=== PATIENT | female | born 1995 | race Caucasian/White ===

== ENCOUNTER → 2017-09-15 | Outpatient (CLI) | payer OTHER ==
[~2017-09-15] MED LIST: GADAVIST IV PRN; NORE1TAB3 PO
--- NOTE | 2017-09-15 21:32 | DIAGNOSTIC IMAGING REPORT ---
BRAIN COMBO CLINICAL HISTORY: 22 years-old Female presenting with ABNORMAL BRAIN MRI, follow-up, status post fall one month ago, injured the right side of the head, increasing memory loss and migraines. TECHNIQUE: Multisequence, multiplanar MR imaging of the brain was performed before and after the administration of intravenous contrast. IV contrast: 6 mL of Gadavist. COMPARISON: No priors available for comparison despite the history of MRI. FINDINGS: Ventricles and sulci normal in size. Few nonspecific small foci of white matter T2/FLAIR hyperintensity in the frontal lobes (series 7 images 9 and 10). These do not demonstrate enhancement or restricted diffusion. No mass effect or midline shift. No restricted diffusion to suggest acute ischemia. No hemorrhage. No extra-axial fluid collection. T2 skull base flow voids preserved. Developmental venous anomaly evident in the right frontal lobe. No abnormal parenchymal enhancement. Bone marrow signal intensity within the calvarium within normal limits. Polypoid mucosal thickening in the left maxillary sinus. IMPRESSION: 1. No acute intracranial pathology. No abnormal enhancement. 2. Few nonspecific small foci of white matter signal abnormality in the frontal lobes could relate to chronic migraines among other etiologies. No evidence of hemorrhage, abnormal enhancement, restricted diffusion of these foci. These are not specific for trauma. Electronically signed by: Dat Chand M.D. 09/15/2017 9:31 PM Dictated Date/Time: 09/15/2017 9:26 PM
== END | disposition home or self-care (01) ==
LOC: C.MRI 20:19
PROVIDERS: ATTEND Psychiatry & Neurology Neurology
DX: R90.89 Other abnormal findings on diagnostic imaging of central nervous system (principal)

== ENCOUNTER 2018-02-14 16:36 | Emergency (ER) | payer OTHER ==
[~2018-02-14] VITALS: Ht 165.1 cm; Wt 55.8 kg
[~2018-02-14 16:36] MED LIST changes: -GADAVIST IV PRN
[2018-02-14 16:39] VITALS: TEMP 37.2; Ht 165.1 cm; Wt 55.8 kg
[2018-02-14] MEDS ORDERED: PANTOprazole INJ 40 MG in SYRINGE 0 ML IV ONE (17:00)
[2018-02-14] MEDS ORDERED: GI COCKTAIL PO ONE (17:00)
[2018-02-14] MEDS ORDERED: SODIUM CHLORIDE 0.9% 1000ML 1,000 ML IV ONE (17:00)
[2018-02-14] MEDS ORDERED: LIDOCAINE HCL 2% VISC SOLN 20 ML UDC ONE (17:02)
[2018-02-14] MEDS ORDERED: ALUMINUM/MAGNESIUM SUSP 30 ML UDC ONE (17:02)
[2018-02-14 17:20] LABS: BASO % 0.5 %; BASO ABS # 0.03 K/uL (0-0.2); EOS ABS # 0.12 K/uL (0-0.5); HEMATOCRIT 42.7 % (37-47); HEMOGLOBIN 14.6 g/dL (12.0-16.0); IG# 0.01 K/uL (0.00-0.02); LYMPH % 25.7 %; LYMPH ABS # 1.55 K/uL (1.2-3.4); MEAN CELL VOLUME 87.5 fL (80-100); MEAN CORPUSCULAR HEMOGLOBIN 29.9 pg (25-34); MEAN CORPUSCULAR HGB CONC 34.2 g/dl (32-36); MEAN PLATELET VOLUME 9.5 fL (7.4-10.4); MONO % 9.8 %; MONO ABS # 0.59 K/uL (0.11-0.59); NEUT % 61.8 %; NEUT ABS # 3.72 K/uL (1.4-6.5); PLATELET COUNT 272 K/uL (130-400); RED CELL DISTRIBUTION WIDTH CV 12.9 % (11.5-14.5); RED CELL DISTRIBUTION WIDTH SD 41.4 fL (36.4-46.3); WHITE BLOOD COUNT 6.02 K/uL (4.8-10.8)
[2018-02-14 17:43] LABS: ALBUMIN 4.6 gm/dl (3.4-5.0); CALCIUM 9.1 mg/dl (8.5-10.1); CREATININE 1.06 mg/dl (0.60-1.20); POTASSIUM 3.6 mmol/L (3.5-5.1); TOTAL PROTEIN 8.8 gm/dl (6.4-8.2)
--- NOTE | 2018-02-14 18:14 | DIAGNOSTIC IMAGING REPORT ---
ABDOMEN 2VIEW W/PA CHEST RTN HISTORY: 22 years-old Female Upper abd pain acute upper abdominal pain COMPARISON: None available TECHNIQUE: PA view of the chest with erect and supine views of the abdomen FINDINGS: Cardiomediastinal and hilar silhouettes are within normal limits. No pneumothorax, pleural effusion, focal airspace consolidation or overt pulmonary edema. The bones of the chest appear grossly intact. There is no pneumatosis or pneumoperitoneum. The bowel gas pattern is nonobstructive. No urolith or organomegaly. No fracture. IMPRESSION: Unremarkable acute abdominal series radiographs. The above report was generated using voice recognition software. It may contain grammatical, syntax or spelling errors. Electronically signed by: Edwin Orta M.D. 02/14/2018 6:13 PM Dictated Date/Time: 02/14/2018 6:11 PM
--- NOTE | 2018-02-14 19:14 | DIAGNOSTIC IMAGING REPORT ---
ABDOMINAL ULTRASOUND, RIGHT UPPER QUADRANT HISTORY: Upper and RUQ abd pain. Worse after eating. COMPARISON: None. FINDINGS: Pancreas: The pancreas demonstrates a normal echotexture. Liver: Unremarkable. Gallbladder: No gallbladder wall thickening. No gallstones. There is a 2 mm gallbladder polyp. Negative sonographic Arriaga's sign. CBD: 2 mm. Right kidney: No hydronephrosis. IMPRESSION: 1. No gallstones. No gallbladder wall thickening. 2. A 2 mm gallbladder polyp. Electronically signed by: Lucio Marquez M.D. 02/14/2018 7:13 PM Dictated Date/Time: 02/14/2018 7:12 PM
[2018-02-14 19:18] VITALS: BP 122/92; PULSE 80; O2SAT 97
[2018-02-14] MEDS ORDERED: PANT40TA PO (19:50)
--- NOTE | 2018-02-14 20:17 | EMERGENCY ROOM VISIT NOTE ---
History First contact with patient: 16:43 Chief Complaint: ABDOMINAL PAIN Stated Complaint: STOMACH PAINS AND NAUSEA Nursing Triage Summary: Starting started getting bad stomach pains, especially when she eats. Including nasuea and bloating. once the food goes through the symptoms resolve, some lower right pain afterwards. Denies blood in stool/urine. If pt eats a lot, pain is 6/10; eating bland foods pain is 5/10. Pain starts 5-10 minutes after pt starts eating. No vomiting. Denies trauma History of Present Illness The patient is a 22 year old female who presents to the Emergency Room with complaints of epigastric abdominal pain for the past 6 days. Her symptoms appear to be distinctly related to eating. She states that after she eats she has nausea and bloating. After a few hours the pain resolves. She does not have pain unless she eats. She has not had vomiting or lower abdominal/pelvic pain. She is using the bathroom as normal. Patient does not have injury or trauma. No fevers or chills. She is on control and denies chance of . No atypical vaginal drainage or discharge. No previous abdominal surgeries. She rates her discomfort after eating a 6/10. She evidently went to an urgent care clinic today, and was tender in the right upper quadrant, and thus was referred to the ER for further evaluation. Review of Systems More than 10 systems were reviewed and otherwise negative with the exception of history of present illness. Past Medical/Surgical History No chronic medical disease Family History Patient reports no known family medical history. Social History Smoking Status: Never Smoker Alcohol Use: none Drug Use: none Marital Status: single Housing Status: lives with roommate Occupation Status: student Current/Historical Medications Scheduled Norethin Acet & Estrad-Fe (08/06), 1 TAB PO HS Pantoprazole (Protonix), 40 MG PO DAILY Physical Exam Vital Signs Date Time Temp Pulse Resp B/P (MAP) Pulse Ox O2 Delivery O2 Flow Rate FiO2 02/14/18 19:18 80 16 122/92 97 Room Air 02/14/18 18:30 66 14 120/79 97 Room Air 02/14/18 17:21 66 14 125/82 100 Room Air 02/14/18 16:39 37.2 85 18 124/94 100 Room Air Physical Exam VITALS: Vitals are noted on the nurse's note and reviewed by myself. Vital signs stable. GENERAL: Well-developed, well-nourished, white female, who is in no acute distress and resting comfortably. Patient is cooperative with the examination. HEAD: Normocephalic atraumatic. HEART: Regular rate and rhythm without murmurs gallops or rubs. LUNGS: Clear to auscultation bilaterally without wheezes, rales or rhonchi. No retractions or accessory muscle use. ABDOMEN: Positive normal bowel sounds x 4. Soft with positive epigastric and right upper quadrant tenderness on palpation. No rebound or guarding. No lower abdominal tenderness. No CVA tenderness. MUSCULOSKELETAL: No muscle atrophy, erythema, or edema noted. Full range of motion in all extremities. Medical Decision & Procedures ER Provider Diagnostic Interpretation: ABDOMEN 2VIEW W/PA CHEST RTN HISTORY: 22 years-old Female Upper abd pain acute upper abdominal pain COMPARISON: None available TECHNIQUE: PA view of the chest with erect and supine views of the abdomen FINDINGS: Cardiomediastinal and hilar silhouettes are within normal limits. No pneumothorax, pleural effusion, focal airspace consolidation or overt pulmonary edema. The bones of the chest appear grossly intact. There is no pneumatosis or pneumoperitoneum. The bowel gas pattern is nonobstructive. No urolith or organomegaly. No fracture. IMPRESSION: Unremarkable acute abdominal series radiographs. ABDOMINAL ULTRASOUND, RIGHT UPPER QUADRANT HISTORY: Upper and RUQ abd pain. Worse after eating. COMPARISON: None. FINDINGS: Pancreas: The pancreas demonstrates a normal echotexture. Liver: Unremarkable. Gallbladder: No gallbladder wall thickening. No gallstones. There is a 2 mm gallbladder polyp. Negative sonographic Arriaga's sign. CBD: 2 mm. Right kidney: No hydronephrosis. IMPRESSION: 1. No gallstones. No gallbladder wall thickening. 2. A 2 mm gallbladder polyp. Laboratory Results 02/14/18 17:00 Red Blood Count 4.88, Mean Corpuscular Volume 87.5, Mean Corpuscular Hemoglobin 29.9, Mean Corpuscular Hemoglobin Concent 34.2, Mean Platelet Volume 9.5, Neutrophils (%) (Auto) 61.8, Lymphocytes (%) (Auto) 25.7, Monocytes (%) (Auto) 9.8, Eosinophils (%) (Auto) 2.0, Basophils (%) (Auto) 0.5, Neutrophils # (Auto) 3.72, Lymphocytes # (Auto) 1.55, Monocytes # (Auto) 0.59, Eosinophils # (Auto) 0.12, Basophils # (Auto) 0.03 02/14/18 17:00 Test 02/14/18 17:00 White Blood Count 6.02 K/uL (4.8-10.8) Red Blood Count 4.88 M/uL (4.2-5.4) Hemoglobin 14.6 g/dL (12.0-16.0) Hematocrit 42.7 % (37-47) Mean Corpuscular Volume 87.5 fL (80-100) Mean Corpuscular Hemoglobin 29.9 pg (25-34) Mean Corpuscular Hemoglobin Concent 34.2 g/dl (32-36) Platelet Count 272 K/uL (130-400) Mean Platelet Volume 9.5 fL (7.4-10.4) Neutrophils (%) (Auto) 61.8 % Lymphocytes (%) (Auto) 25.7 % Monocytes (%) (Auto) 9.8 % Eosinophils (%) (Auto) 2.0 % Basophils (%) (Auto) 0.5 % Neutrophils # (Auto) 3.72 K/uL (1.4-6.5) Lymphocytes # (Auto) 1.55 K/uL (1.2-3.4) Monocytes # (Auto) 0.59 K/uL (0.11-0.59) Eosinophils # (Auto) 0.12 K/uL (0-0.5) Basophils # (Auto) 0.03 K/uL (0-0.2) RDW Standard Deviation 41.4 fL (36.4-46.3) RDW Coefficient of Variation 12.9 % (11.5-14.5) Immature Granulocyte % (Auto) 0.2 % Immature Granulocyte # (Auto) 0.01 K/uL (0.00-0.02) Urine Color YELLOW Urine Appearance CLEAR (CLEAR) Urine pH 6.5 (4.5-7.5) Urine Specific [place] 1.011 (1.000-1.030) Urine Protein NEG (NEG) Urine Glucose (UA) NEG (NEG) Urine Ketones NEG (NEG) Urine Occult Blood NEG (NEG) Urine Nitrite NEG (NEG) Urine Bilirubin NEG (NEG) Urine Urobilinogen NEG (NEG) Urine Leukocyte Esterase NEG (NEG) Urine Test NEG (NEG) Anion Gap 7.0 mmol/L (3-11) Est Creatinine Clear Calc Drug Dose 72.7 ml/min Estimated GFR () 85.7 Estimated GFR (Non- 74.0 BUN/Creatinine Ratio 11.9 (10-20) Calcium Level 9.1 mg/dl (8.5-10.1) Total Bilirubin 0.4 mg/dl (0.2-1) Aspartate Amino Transf (AST/SGOT) 15 U/L (15-37) Alanine Aminotransferase (ALT/SGPT) 19 U/L (12-78) Alkaline Phosphatase 65 U/L (45-117) Total Protein 8.8 gm/dl (6.4-8.2) Albumin 4.6 gm/dl (3.4-5.0) Globulin 4.2 gm/dl (2.5-4.0) Albumin/Globulin Ratio 1.1 (0.9-2) Lipase 142 U/L (73-393) Medications Administered Medications (Trade) Dose Ordered Sig/Macario Route Start Time Stop Time Status Last Admin Dose Admin Sodium Chloride 1,000 ml @ 999 mls/hr Q1H1M ONCE IV 02/14/18 17:00 02/14/18 18:00 DC 02/14/18 17:12 999 MLS/HR Pantoprazole Sodium 40 mg/ Syringe 10 ml @ 5 mls/min NOW ONCE IV 02/14/18 17:00 02/14/18 17:01 DC 02/14/18 17:13 5 MLS/MIN Lidocaine HCl (Viscous Lidocaine 2% Soln) 20 ml STK-MED ONCE .ROUTE 02/14/18 17:02 02/14/18 17:03 DC 02/14/18 17:12 10 ML Al Hydroxide/Mg Hydroxide (Maalox Susp) 30 ml STK-MED ONCE .ROUTE 02/14/18 17:02 02/14/18 17:03 DC 02/14/18 17:12 30 ML ED Course Physical exam and history were performed. Nursing notes, EMR, and Medication List were personally reviewed. Patient appears to have postprandial abdominal pain. She does have some reproducible tenderness in the epigastric and right upper quadrant areas. IV access was established and labs are obtained. The patient was hydrated and medicated as above. Plain films and ultrasound were ordered. The patient's blood work is as above and was reviewed. She does not have a significantly elevated white blood cell count, gross anemia, bandemia, or significant electrolyte imbalance. Lipase and transaminases are not diagnostic. Urine is without evidence of infection. She is not . X- ray was reviewed by myself and radiology as showing no acute process. Ultrasound shows a small 2 mm gallbladder polyp, but no other significant findings. On reevaluation the patient continues well appearing. Repeat abdominal exam continues without any lower abdominal tenderness to suggest [employer] etiology or appendicitis. I did discuss further options of care with the patient including CT scan and pelvic exam. Utilizing shared decision making we elected against these tests, as the patient is feeling well and her workup to this point has been unremarkable. The patient will be started on a short course of Protonix as I suspect that GERD or PUD may be contributing to her symptoms. The patient is to follow with her primary care physician in the next few days for recheck. She was otherwise asked to return to the ER with any new, worsening, or concerning symptoms. The chart was completed utilizing [employer] Speech Voice Recognition Software. Grammatical errors, random word insertions, pronoun errors, and incomplete sentences are an occasional consequence of this system due to software limitations, ambient noise, and hardware issues. Any formal questions or concerns about the content, text, or information contained within the body of this dictation should be directly addressed to the provider for clarification. . Medical Decision Differential diagnosis: Etiologies such as appendicitis, diverticulitis, PUD, biliary pathology, UTI, pancreatitis, obstruction, mesenteric ischemia, aortic pathology, infections, inflammatory bowel disease, renal colic, as well as others were entertained. Impression Primary Impression: Abdominal pain Additional Impression: Gall bladder polyp Departure Information Dispostion Home / Self-Care Condition GOOD Prescriptions Pantoprazole (Protonix) 40 Mg Tab 40 MG PO DAILY for 14 Days, #14 TAB Prov: aCrlos Tapia PA-C 02/14/18 Forms HOME CARE DOCUMENTATION FORM, IMPORTANT VISIT INFORMATION Patient Instructions My [facility] Additional Instructions You were seen and evaluated today on an emergency basis only. This is not a substitute for, or an effort to provide, complete comprehensive medical care. It is not possible to recognize and treat all injuries or illnesses in a single emergency department visit. For this reason it is recommended that you followup with your primary care physician next week with any ongoing or persisting symptoms. Take Protonix 40 mg daily for the next 2 weeks. Drink plenty of fluids and remain well-hydrated. Eat a bland diet. You are welcome to return to the emergency department anytime with new, worsening, or concerning symptoms. Problem Qualifiers Primary Impression: Abdominal pain Abdominal location: epigastric Qualified Codes: R10.13 - Epigastric pain
== END 2018-02-14 19:48 | disposition home or self-care (01) ==
LOC: C.EDB 16:37 → C.EDC 19:48
DX: R10.13 Epigastric pain (principal); K82.4 Cholesterolosis of gallbladder; R14.0 Abdominal distension (gaseous); R11.0 Nausea; Z79.3 Long term (current) use of hormonal contraceptives